=== PATIENT | male | born 1950 | race Caucasian/White ===

== ENCOUNTER 2016-06-21 19:28 | Outpatient (CLI) | payer BC, OTHER | END 2016-06-21 19:29 | disposition home or self-care (01) | DX: G47.33 Obstructive sleep apnea (adult) (pediatric) (principal); G47.61 Periodic limb movement disorder; Z68.33 Body mass index [BMI] 33.0-33.9, adult ==

== ENCOUNTER 2016-07-27 09:05 | Outpatient (CLI) | payer BC, OTHER | END 2016-07-27 09:06 | disposition home or self-care (01) | DX: G47.33 Obstructive sleep apnea (adult) (pediatric) (principal); G47.61 Periodic limb movement disorder ==

== ENCOUNTER 2016-08-05 08:54 | Outpatient (CLI) | payer BC, OTHER | END 2016-08-05 08:55 | disposition home or self-care (01) | DX: R07.9 Chest pain, unspecified (principal) ==

== ENCOUNTER 2016-08-10 14:41 | Outpatient (CLI) | payer BC, OTHER | END 2016-08-10 14:42 | disposition home or self-care (01) | DX: M25.561 Pain in right knee (principal) ==

== ENCOUNTER 2016-08-15 19:29 | Outpatient (CLI) | payer BC, OTHER | END 2016-08-15 19:30 | disposition home or self-care (01) | DX: G47.33 Obstructive sleep apnea (adult) (pediatric) (principal); G47.61 Periodic limb movement disorder; Z68.33 Body mass index [BMI] 33.0-33.9, adult ==

== ENCOUNTER 2016-08-31 09:15 | Outpatient (CLI) | payer BC, OTHER | END 2016-08-31 09:16 | disposition home or self-care (01) | DX: G47.33 Obstructive sleep apnea (adult) (pediatric) (principal) ==

== ENCOUNTER 2016-10-12 09:39 | Outpatient (CLI) | payer BC, OTHER | END 2016-10-12 09:40 | disposition home or self-care (01) | LOC: SC 09:39 | PROVIDERS: ATTEND Nurse Practitioner Family | DX: G47.33 Obstructive sleep apnea (adult) (pediatric) (principal) | CPT/HCPCS: 99212; 99214 ==

== ENCOUNTER 2017-01-13 07:35 | Outpatient (CLI) | payer BC, OTHER ==
[2017-01-13 12:52] LABS: BILIRUBIN,URINE NEGATIVE (NEGATIVE)
[2017-01-13 13:01] LABS: BASOPHILS % (AUTO) 0.3 %; EOSINOPHILS # (AUTO) 0.1 10^3/uL (0.0-0.7); HCT - HEMATOCRIT 42.3 % (42.0-52.0); LYMPHOCYTES # (AUTO) 1.4 10^3/uL (1.5-3.5); LYMPHOCYTES % (AUTO) 40.3 %; MEAN CORPUSCULAR HEMOGLOBIN 29.1 pg (27.0-31.0); MEAN CORPUSCULAR HGB CONC 33.2 g/dL (32.0-36.0); MEAN CORPUSCULAR VOLUME 87.5 fL (80.0-94.0); MEAN PLATELET VOLUME 7.3 fL (7.4-11.4); MONOCYTES # (AUTO) 0.4 10^3/uL (0.0-1.0); MONOCYTES % (AUTO) 11.3 %; NEUTROPHILS # (AUTO) 1.6 10^3/uL (1.5-6.6); NEUTROPHILS % (AUTO) 45.1 %; NUCLEATED RED BLOOD CELLS AUTO 0.1 /100WBC; RED BLOOD COUNT 4.83 10^6/uL (4.70-6.10); RED CELL DISTRIBUTION WIDTH 13.4 % (12.0-15.0); UNCORRECTED WHITE BLOOD COUNT 3.5 x10^3/uL; WHITE BLOOD COUNT 3.5 x10^3/uL (4.8-10.8)
[2017-01-13 13:08] LABS: WBC,URINE 0-3 /HPF (0-3)
[2017-01-13 13:09] LABS: UR CULTURE IF IND NOT INDICATED
[2017-01-13 13:17] LABS: ALBUMIN/GLOBULIN RATIO 1.7 (1.0-2.2); BILIRUBIN,TOTAL 0.7 mg/dL (0.2-1.0); BUN - BLOOD UREA NITROGEN 18 mg/dL (6-20); CALCIUM 9.5 mg/dL (8.5-10.3); CARBON DIOXIDE - CO2 30 mmol/L (21-32); CHLORIDE 102 mmol/L (101-111); CHOL/HDL RATIO 3.2 (<5.0); CHOLESTEROL 130 mg/dL; CREATININE 0.7 mg/dL (0.6-1.2); GFR - MDRD 114 (>89); GLUCOSE 92 mg/dL (70-100); HDL CHOLESTEROL 41 mg/dL; LDL/HDL RATIO 1.8 (<3.6); POTASSIUM 4.1 mmol/L (3.5-5.0); SODIUM 139 mmol/L (135-145); TOTAL PROTEIN 7.1 g/dL (6.7-8.2); TRIGLYCERIDES 76 mg/dL; VLDL CHOLESTEROL 15 mg/dL
== END 2017-01-13 07:36 | disposition home or self-care (01) ==
LOC: LAB.WCP 07:35
PROVIDERS: ATTEND Family Medicine
DX: K21.9 Gastro-esophageal reflux disease without esophagitis (principal); E78.5 Hyperlipidemia, unspecified; R31.9 Hematuria, unspecified; N40.1 Benign prostatic hyperplasia with lower urinary tract symptoms
CPT/HCPCS: 36415; 80053; 80061; 81001; 84153; 85025; 87086

== ENCOUNTER 2017-09-12 09:05 | Outpatient (CLI) | payer BC, OTHER | END 2017-09-12 09:06 | disposition home or self-care (01) | LOC: SC 09:05 | PROVIDERS: ATTEND Internal Medicine Pulmonary Disease | DX: G47.33 Obstructive sleep apnea (adult) (pediatric) (principal) | CPT/HCPCS: 99212; 99213 ==

== ENCOUNTER 2017-12-12 08:00 | Outpatient (CLI) | payer BC, OTHER ==
[2017-12-12 12:50] LABS: BILIRUBIN,URINE NEGATIVE (NEGATIVE); GLUCOSE, URINE (UA) NEGATIVE (NEGATIVE); KETONES,URINE (UA) NEGATIVE (NEGATIVE); LEUKOCYTE ESTERASE, URINE NEGATIVE (NEGATIVE); NITRITE,URINE NEGATIVE (NEGATIVE); OCCULT BLOOD,URINE NEGATIVE (NEGATIVE); PROTEIN,URINE NEGATIVE (NEGATIVE); UROBILINOGEN,URINE 0.2 (NORMAL) E.U./dL (NORMAL)
[2017-12-12 12:52] LABS: CLARITY,URINE CLEAR (CLEAR)
[2017-12-12 13:03] LABS: ALBUMIN/GLOBULIN RATIO 1.2 (1.0-2.2); ALKALINE PHOSPHATASE 35 IU/L (42-121); ALT ALANINE AMINOTRANSFERASE 27 IU/L (10-60); AST ASPARTATE AMINOTRANSFERASE 29 IU/L (10-42); BILIRUBIN,TOTAL 1.1 mg/dL (0.2-1.0); BUN - BLOOD UREA NITROGEN 26 mg/dL (6-20); CALCIUM 9.3 mg/dL (8.5-10.3); CARBON DIOXIDE - CO2 28 mmol/L (21-32); CHLORIDE 102 mmol/L (101-111); CHOL/HDL RATIO 4.8 (<5.0); CHOLESTEROL 203 mg/dL; CREATININE 0.9 mg/dL (0.6-1.2); GFR - MDRD 85 (>89); GLUCOSE 92 mg/dL (70-100); HDL CHOLESTEROL 42 mg/dL; LDL CHOLESTEROL,CALCULATED 145 mg/dL; LDL/HDL RATIO 3.5 (<3.6); SODIUM 137 mmol/L (135-145); TOTAL PROTEIN 7.3 g/dL (6.7-8.2); VLDL CHOLESTEROL 16 mg/dL
[2017-12-12 13:14] LABS: BASOPHILS % (AUTO) 0.9 %; EOSINOPHILS % (AUTO) 3.8 %; LYMPHOCYTES % (AUTO) 36.3 %; MEAN CORPUSCULAR HEMOGLOBIN 29.5 pg (27.0-31.0); MEAN CORPUSCULAR HGB CONC 33.9 g/dL (32.0-36.0); MEAN PLATELET VOLUME 7.3 fL (7.4-11.4); MONOCYTES % (AUTO) 10.5 %; NEUTROPHILS % (AUTO) 48.5 %; PLT - PLATELET COUNT 149 10^3/uL (130-450); RED BLOOD COUNT 5.08 10^6/uL (4.70-6.10); RED CELL DISTRIBUTION WIDTH 13.5 % (12.0-15.0); WHITE BLOOD COUNT 4.4 x10^3/uL (4.8-10.8)
[2017-12-12 13:17] LABS: ABNORMAL LYMPHS % (MANUAL) 0 %; BAND NEUTROPHILS % (MANUAL) 0 %
[2017-12-12 13:38] LABS: BACTERIA,URINE None Seen /HPF (None Seen); RBC,URINE 0-5 /HPF (0-5); SQUAMOUS EPITHELIAL CELL,UR NONE SEEN (<= Few)
[2017-12-12 15:22] LABS: BASOPHILS # (MANUAL) 0.1 10^3/uL (0-0.1); BASOPHILS % (MANUAL) 3 %; EOSINOPHILS # (MANUAL) 0.1 10^3/uL (0-0.7); LYMPHOCYTES # (MANUAL) 1.6 10^3/uL (1.5-3.5); LYMPHOCYTES % (MANUAL) 26 %; MONOCYTES # (MANUAL) 0.6 10^3/uL (0.0-1.0); NEUTROPHILS % (MANUAL) 46 %; PLATELET MORPHOLOGY NORMAL APPEARANCE (NORMAL); RBC MORPHOLOGY (MULTIPLE) NORMAL APPEARANCE (NORMAL)
[2017-12-12 15:23] LABS: DIFFERENTIAL COMMENT MANUAL DIFFERENTIAL; PLATELET ESTIMATE, MANUAL NORMAL (130-450,000) (NORMAL)
== END 2017-12-12 08:01 | disposition home or self-care (01) ==
LOC: LAB.WCP 08:00
PROVIDERS: ATTEND Family Medicine
DX: E66.9 Obesity, unspecified (principal); E78.5 Hyperlipidemia, unspecified; R31.9 Hematuria, unspecified; Z12.5 Encounter for screening for malignant neoplasm of prostate
CPT/HCPCS: 36415; 80053; 80061; 81001; 83721; 84153; 85025

== ENCOUNTER 2018-09-11 09:11 | Outpatient (CLI) | payer MEDICARE, BC, OTHER | END 2018-09-11 09:12 | disposition home or self-care (01) | LOC: SC 09:11 | PROVIDERS: ATTEND Internal Medicine Pulmonary Disease | DX: G47.33 Obstructive sleep apnea (adult) (pediatric) (principal) | CPT/HCPCS: 99213; G0463; 99212 ==

== ENCOUNTER 2018-12-18 | Outpatient (CLI) | payer MEDICARE, BC, OTHER | END 2018-12-18 23:59 | disposition home or self-care (01) | CPT/HCPCS: 36415; 80053; 80061; 85025; G0103 ==

== ENCOUNTER 2019-08-21 16:37 | Outpatient (CLI) | payer MEDICARE, BC, OTHER ==
--- NOTE | 2019-08-21 09:59 | SLEEP CARE CONSULTATION ---
Information from patient questionnaire entered by Sheila Carey. I have reviewed and concur with the information entered by Sheila Carey. This document represents the service I personally performed and the decisions made by me, Burton Saez MD, [facility]. History of Present Illness Previous diagnosis: Moderate, Obstructive Sleep Apnea-Hypopnea Syndrome AHI: 29.1 Reason for follow up: annual Equipment type: CPAP Equipment obtained from: [employer] Prior sleep studies: Yes HPI additional information: To minimize the risk of COVID-19 exposure, the patient has requested and consented to this telephone visit. The patient also agrees to having his insurance billed. HPI: Mr. Corona was diagnosed to have moderate obstructive sleep apnea- hypopnea syndrome and returns today for annual follow up of CPAP therapy. The patient purchased the device from [employer] but is getting supplies through [facility]. He continues to wear the old ResMed Mirage Micro nasal mask (he has to buy the mask online because [employer] does not stock the mask). He continues to use the device nightly and all through the night. The compliance report shows that he uses the device 180 nights out of the past 180 nights, averaging 8.3 hours a night. The > 4 hour compliance rate for the past 30 days is 100%. He complains of dry mouth buyt no particular problem with the device such as soreness on the face, dry nose, epistaxis, nasal congestion or headache. He thinks that the pressure of 12 -16 cmH2O is comfortable. On the CPAP therapy he notices improvement in his sleep quality, and that he wakes up feeling fresher in the morning and more awake/alert during the day. His notices no snore at all. The average residual AHI is 2.2; and average time in large leak per day is 15 (was 4 last year) minutes. CPAP Compliance Data - Data Reviewed with Patient Average duration of nightly device use: 8h 15m Compliance rate %: 98.9 Current pressure setting (cmH2O): 12-16 Humidity settin Heated hose settin Average residual AHI: 1.9 Average large leak: 6m 3s Subjective Initial [place] Sleepiness Scale score: 15 Allergies and Home Medications Drug allergies reviewed: Yes Home medication list reviewed: Yes Review of Systems Review of systems same as previous: Yes Impression and Plan IMPRESSION: 1. Obstructive Sleep Apnea-Hypopnea Syndrome, moderate, with the patient continuing to do well on nasal CPAP therapy. He has excellent compliance and significant clinical benefits. The current pressure appears effective and comfortable. Overall, he is very satisfied with treatment and plans to continue with it long-term. For his dry mouth, I recommend raising the heated humidifier setting from 4 to 5. He may also try a full face mask. PLAN: 1. Continue with nasal CPAP set at 12 -16 cm H2O. 2. Try a full face mask, e.g ResMed AirTouch F-20 full face mask. 3. Increase the heated humidifier setting to max. 4. Return for follow up in a year or earlier if there is any problem. Visit Type: Telehealth Phone Location of Provider: Home Patient agrees and consents to this telehealth visit type: Yes Time Spent with Patient (minutes): 10 Provider Statement: I spent 100% of the Telehealth Phone Call with the patient with greater than 50% spent counseling the patient and coordination of care.
== END 2019-08-21 16:38 | disposition home or self-care (01) ==
LOC: SC 16:37
PROVIDERS: ATTEND Internal Medicine Pulmonary Disease
DX: G47.33 Obstructive sleep apnea (adult) (pediatric) (principal)

== ENCOUNTER 2020-03-06 09:16 | Outpatient (CLI) | payer MEDICARE, BC, OTHER ==
[2020-03-06 09:44] LABS: BASOPHILS # (AUTO) 0.1 10^3/uL (0.0-0.1); BASOPHILS % (AUTO) 1.3 %; EOSINOPHILS # (AUTO) 0.1 10^3/uL (0.0-0.7); LYMPHOCYTES # (AUTO) 1.7 10^3/uL (1.5-3.5); LYMPHOCYTES % (AUTO) 36.4 %; MEAN CORPUSCULAR HEMOGLOBIN 28.6 pg (27.0-31.0); MEAN CORPUSCULAR HGB CONC 32.1 g/dL (32.0-36.0); MEAN CORPUSCULAR VOLUME 89.3 fL (80.0-94.0); MEAN PLATELET VOLUME 8.7 fL (7.4-11.4); MONOCYTES # (AUTO) 0.6 10^3/uL (0.0-1.0); MONOCYTES % (AUTO) 12.4 %; NEUTROPHILS # (AUTO) 2.2 10^3/uL (1.5-6.6); NEUTROPHILS % (AUTO) 46.7 %; PLT - PLATELET COUNT 161 10^3/uL (130-450); RED BLOOD COUNT 5.24 10^6/uL (4.70-6.10); RED CELL DISTRIBUTION WIDTH 13.3 % (12.0-15.0); WHITE BLOOD COUNT 4.6 x10^3/uL (4.8-10.8)
[2020-03-06 10:18] LABS: ALBUMIN 4.2 g/dL (3.2-5.5); ALBUMIN/GLOBULIN RATIO 1.4 (1.0-2.2); ALKALINE PHOSPHATASE 40 IU/L (42-121); ALT ALANINE AMINOTRANSFERASE 31 IU/L (10-60); AST ASPARTATE AMINOTRANSFERASE 28 IU/L (10-42); BILIRUBIN,TOTAL 0.7 mg/dL (0.2-1.0); BUN - BLOOD UREA NITROGEN 23 mg/dL (6-20); CALCIUM 9.3 mg/dL (8.5-10.3); CARBON DIOXIDE - CO2 26 mmol/L (21-32); CHLORIDE 101 mmol/L (101-111); CHOL/HDL RATIO 3.1 (<5.0); CHOLESTEROL 141 mg/dL; GLUCOSE 100 mg/dL (70-100); HDL CHOLESTEROL 46 mg/dL; LDL CHOLESTEROL,CALCULATED 84 mg/dL; LDL/HDL RATIO 1.8 (<3.6); SODIUM 137 mmol/L (135-145); TOTAL PROTEIN 7.2 g/dL (6.7-8.2); URIC ACID 5.5 mg/dL (2.6-7.2); VLDL CHOLESTEROL 11 mg/dL
[2020-03-06 10:20] LABS: CRP - C-REACTIVE PROTEIN < 1.0 mg/dL (0-1.0)
[2020-03-06 11:13] LABS: RHEUMATOID FACTOR NEGATIVE (Negative)
--- NOTE | 2020-03-06 12:46 | XRAY Report ---
PROCEDURE: Elbow 2 View BILAT INDICATIONS: ELBOW PAIN,BILATERAL TECHNIQUE: 2 views of each elbow were acquired. COMPARISON: None. FINDINGS: Bones: No acute fractures or dislocations. No suspicious bony lesions. There are corticated ossifi cations overlying the medial epicondyle of the left elbow. Soft tissues: No elbow joint effusion. No suspicious soft tissue calcifications. IMPRESSION: 1. 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 2. Bilateral elbow without acute radiographic abnormalities. Reviewed by: Aldo Rosas MD on 03/06/2020 12:45 PM PDT Approved by: Aldo Rosas MD on 03/06/2020 12:45 PM PDT Station ID: [id number]
== END 2020-03-06 09:17 | disposition home or self-care (01) ==
LOC: DI 09:16
PROVIDERS: ATTEND Family Medicine
DX: M25.522 Pain in left elbow (principal); M25.521 Pain in right elbow; E78.5 Hyperlipidemia, unspecified; Z12.5 Encounter for screening for malignant neoplasm of prostate; K21.9 Gastro-esophageal reflux disease without esophagitis
CPT/HCPCS: 36415; 73070; 80053; 80061; 84550; 85025; 85651; 86140; 86200; 86430; G0103; 83721; 84153

== ENCOUNTER 2020-08-25 09:07 | Outpatient (CLI) | payer MEDICARE, BC, OTHER ==
--- NOTE | 2020-08-25 09:55 | SLEEP CARE CONSULTATION ---
Information from patient questionnaire entered by Sangita Vogel. I have reviewed and concur with the information entered by Sangita Vogel. This document represents the service I personally performed and the decisions made by me, Burton Saez MD, [facility]. History of Present Illness Service Date and Time: 08/25/2020 0907 Previous diagnosis: Moderate, Obstructive Sleep Apnea-Hypopnea Syndrome AHI: 29.1 (in 2016)(22.6 in 2011) Reason for follow up: annual (last seen 08/2019) Equipment type: CPAP Equipment obtained from: [employer] Mask style: Nasal Prior sleep studies: Yes Year and Where: 2016 and 2011 - [facility]; [facility] Type of Sleep Study: Polysomnography HPI additional information: HPI: Mr. Corona was diagnosed to have moderate obstructive sleep apnea- hypopnea syndrome and returns today for annual follow up of CPAP therapy. The patient purchased the device from [employer] but is getting supplies from [employer]. He now wears a ResMed full face mask. He continues to use the device nightly and all through the night. The compliance report shows that he uses the device 180 nights out of the past 180 nights, averaging 8.9 hours a night. He complains of occasional insomnia but no particular problem with the device such as soreness on the face, dry nose, epistaxis, nasal congestion or headache. He thinks that the pressure of 12 -16 cmH2O is comfortable. On the CPAP therapy he notices improvement in his sleep quality, and that he wakes up feeling fresher in the morning and more awake/alert during the day. [place] Sleepiness Scale score is 7 (was 12). His notices no snore at all. The average residual AHI is 3.0; and average time in large leak per day is 13 minutes. CPAP Compliance Data - Data Reviewed with Patient Average duration of nightly device use: 8 hr 52 min Compliance rate %: 98.9 (180 days) Current pressure setting (cmH2O): 12-16 Humidity settin Heated hose settin Average residual AHI: 3.0 Average large leak: 13 min 30 sec Subjective Initial [place] Sleepiness Scale score: 15 (in 2007) Current [place] Sleepiness Scale score: 7 Allergies and Home Medications Drug allergies reviewed: Yes Home medication list reviewed: Yes Review of Systems Review of systems same as previous: Yes Physical Exam Weight: 210 lb Impression and Plan IMPRESSION: 1. Obstructive Sleep Apnea-Hypopnea Syndrome, moderate, with the patient continuing to do well on nasal CPAP therapy. He has excellent compliance and significant clinical benefits. The current pressure appears effective and comfortable. Overall, he is very satisfied with treatment and plans to continue with it long-term. No adjustment is necessary today. PLAN: 1. Continue with nasal CPAP set at 12 -16 cm H2O. 2. Try a ResMed AirTouch F-20 full face mask 3. Return for follow up in a year or earlier if there is any problem. He should be eligible for a new machine next year. Counseling Topics: Weight control Visit Type: In Office Time Spent with Patient (minutes): 15 Provider Statement: I spent 100% of the Face to Face Visit with the patient with greater than 50% spent counseling the patient and coordination of care.
== END 2020-08-25 09:08 | disposition home or self-care (01) ==
LOC: SC 09:07
PROVIDERS: ATTEND Internal Medicine Pulmonary Disease
DX: G47.33 Obstructive sleep apnea (adult) (pediatric) (principal)
CPT/HCPCS: 99212; G0463

== ENCOUNTER 2020-12-10 09:19 | Emergency (ER) | payer MEDICARE, BC, OTHER ==
[2020-12-10] MEDS ORDERED: MECLIZINE 12.5 MG TABLET PO STA (09:42)
[2020-12-10] MEDS ORDERED: SODIUM CHLORIDE 0.9% 1,000 ML IV STA (09:42)
[2020-12-10 10:16] LABS: BASOPHILS # (AUTO) 0.1 10^3/uL (0.0-0.1); BASOPHILS % (AUTO) 1.1 %; EOSINOPHILS # (AUTO) 0.2 10^3/uL (0.0-0.7); EOSINOPHILS % (AUTO) 3.2 %; HCT - HEMATOCRIT 47.8 % (42.0-52.0); HGB - HEMOGLOBIN 15.6 g/dL (14.0-18.0); LYMPHOCYTES # (AUTO) 1.5 10^3/uL (1.5-3.5); LYMPHOCYTES % (AUTO) 30.9 %; MEAN CORPUSCULAR HEMOGLOBIN 28.6 pg (27.0-31.0); MEAN CORPUSCULAR HGB CONC 32.6 g/dL (32.0-36.0); MEAN CORPUSCULAR VOLUME 87.7 fL (80.0-94.0); MONOCYTES # (AUTO) 0.6 10^3/uL (0.0-1.0); NEUTROPHILS # (AUTO) 2.5 10^3/uL (1.5-6.6); NEUTROPHILS % (AUTO) 52.6 %; PLT - PLATELET COUNT 145 10^3/uL (130-450); RED BLOOD COUNT 5.45 10^6/uL (4.70-6.10); RED CELL DISTRIBUTION WIDTH 13.3 % (12.0-15.0); WHITE BLOOD COUNT 4.8 x10^3/uL (4.8-10.8)
[2020-12-10 10:28] LABS: ALBUMIN 4.6 g/dL (3.2-5.5); ALBUMIN/GLOBULIN RATIO 1.4 (1.0-2.2); CALCIUM 9.6 mg/dL (8.5-10.3); CREATININE 0.9 mg/dL (0.6-1.2); POTASSIUM 4.4 mmol/L (3.5-5.0); TOTAL PROTEIN 7.9 g/dL (6.7-8.2)
--- NOTE | 2020-12-10 11:12 | CT Report ---
PROCEDURE: HEAD WO INDICATIONS: vertigo TECHNIQUE: Noncontrast 4.5 mm thick angled axial sections acquired from the foramen magnum to the vertex. For r adiation dose reduction, the following was used: automated exposure control, adjustment of mA and/or kV according to patient size. COMPARISON: None. FINDINGS: Image quality: Excellent. CSF spaces: Basal cisterns are patent. No extra-axial fluid collections. Ventricles are normal in size and shape. Brain: No midline shift. No intracranial masses or hemorrhage. Ralph-white matter interface is with in normal limits. Skull and face: Calvarium and visualized facial bones are intact, without suspicious lesions. Sinuses: Visualized sinuses and mastoids are clear. IMPRESSION: No acute intracranial abnormality. Reviewed by: Melchor Ott MD on 12/10/2020 11:10 AM PDT Approved by: Melchor Ott MD on 12/10/2020 11:10 AM PDT Station ID: [id number]
[2020-12-10 11:29] VITALS: BP 133/85
--- NOTE | 2020-12-10 11:32 | ED Physician Documentation ---
History of Present Illness - Stated complaint Stated Complaint: DIZZY - Chief complaint Chief Complaint: Neuro - History obtained from History obtained from: Patient - Additonal information Additional information: Patient comes emergency department chief complaint of feeling "dizzy". He states that this is somewhat of a lightheaded feeling but even more so, a sense of movement or spinning. He states that he first felt this way several weeks ago when he had the big streak of heat of hot weather, but that this resolved on its own. He states his current episode started up about 3 days ago and that when he turns over in bed onto his left side he notices it the most. Otherwise, he does not have any specific triggers. The vertigo is severe and seems to come and go. He has occasional nausea but has not vomited. No tenderness. He has not been ill recently. No current medications for the vertigo. Patient states he is fairly healthy otherwise. No focal neurologic deficits. No other comp laints at this time. No recent head injury. Patient was seen at the walk-in clinic prior to this and sent here for further evaluation. Review of Systems Ten Systems: 10 systems reviewed and negative Constitutional: reports: Reviewed and negative Eyes: reports: Reviewed and negative Ears: reports: Reviewed and negative Nose: reports: Reviewed and negative Throat: reports: Reviewed and negative Cardiac: reports: Reviewed and negative Respiratory: reports: Reviewed and negative GI: reports: Reviewed and negative : reports: Reviewed and negative Skin: reports: Reviewed and negative Musculoskeletal: reports: Reviewed and negative Neurologic: reports: Other (Dizziness) Psychiatric: reports: Reviewed and negative Endocrine: reports: Reviewed and negative Immunocompromised: reports: Reviewed and negative PD PAST MEDICAL HISTORY - Present Medications Home Medications: Ambulatory Orders Medication Instructions Recorded Confirmed Meclizine HCl [Motion Sickness] 25 mg PO Q6HR PRN #20 tablet 12/10/20 Simvastatin [Zocor] 20 mg PO DAILY 12/10/20 12/10/20 - Allergies Allergies/Adverse Reactions: Allergies Allergy/AdvReac Type Severity Reaction Status Date / Time No Known Drug Allergies Allergy Verified 12/10/20 09:28 - Social History Does the pt smoke?: No Smoking Status: Never smoker PD ED PE NORMAL - Vitals Vital signs reviewed: Yes - General General: Alert and oriented X 3, No acute distress, Well developed/nourished - HEENT HEENT: Atraumatic, PERRL, EOMI, Moist mucous membranes - Neck Neck: Supple, no meningeal sign - Cardiac Cardiac: RRR, No murmur - Respiratory Respiratory: No respiratory distress, Clear bilaterally - Abdomen Abdomen: Soft, Non tender, Non distended - Back Back: No CVA TTP - Derm Derm: Normal color, Warm and dry, No rash - Extremities Extremities: No deformity, No edema - Neuro Neuro: Alert and oriented X 3, 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, No motor deficit, No sensory deficit, Normal speech - Psych Psych: Normal mood, Normal affect Results - Vitals Vitals: Oxygen O2 Source Room air - Labs Labs: Laboratory Tests 12/10/20 12/10/20 09:50 09:50 WBC 4.8 RBC 5.45 Hgb 15.6 Hct 47.8 MCV 87.7 MCH 28.6 MCHC 32.6 RDW 13.3 Plt Count 145 MPV 9.0 Neut # (Auto) 2.5 Lymph # (Auto) 1.5 Hughes # (Auto) 0.6 Eos # (Auto) 0.2 Baso # (Auto) 0.1 Absolute Nucleated RBC 0.00 Nucleated RBC % 0.0 Sodium 136 Potassium 4.4 Chloride 101 Carbon Dioxide 25 Anion Gap 10.0 BUN 25 H Creatinine 0.9 Estimated GFR (MDRD) 84 L Glucose 99 Calcium 9.6 Total Bilirubin 1.0 AST 28 ALT 28 Alkaline Phosphatase 43 Total Protein 7.9 Albumin 4.6 Globulin 3.3 Albumin/Globulin Ratio 1.4 Lipase 31 PD MEDICAL DECISION MAKING - ED course Complexity details: reviewed results, re-evaluated patient, considered differential, d/w patient ED course: Patient was worked up with labs and head CT which were unremarkable. He was treated with IV fluids and meclizine and found to be feeling much better. He was able to ambulate to the bathroom without difficulty. We discussed symptomatic treatment at home and the need for ENT follow-up if symptoms do not resolve after the next couple weeks. We discussed the usual indications for return. Departure - Departure Disposition: 01 Home, Self Care Clinical Impression: Vertigo Condition: Stable Instructions: ED Vertigo Unspecified Prescriptions: Meclizine HCl [Motion Sickness] 25 mg PO Q6HR PRN #20 tablet PRN Reason: Dizziness Comments: Your labs and CT scan look very good. Most likely, you have vertigo that is stemming from your inner ear. Sometimes this is a problem with the nerve of the inner ear, and sometimes it is a problem with calcium deposits in the fluid- filled canals that detect movements. Either way, the symptoms generally calm down on their own, but the medicine can be helpful for this. Please take the medicine as needed. If you are still having symptoms after a couple of weeks, please follow-up with your primary care physician for further evaluation. You may continue your usual activities as far as you feel comfortable doing so. Discharge Date/Time: 12/10/20 11:55
== END 2020-12-10 11:55 | disposition home or self-care (01) ==
LOC: ED 09:19
DX: R42 Dizziness and giddiness (principal)
CPT/HCPCS: 36415; 70450; 80053; 83690; 85025; 99284; A9270

== ENCOUNTER 2021-03-27 08:00 | Outpatient (CLI) | payer MEDICARE, BC, OTHER ==
[2021-03-27 14:34] LABS: CHOLESTEROL 128 mg/dL; HDL CHOLESTEROL 42 mg/dL; LDL CHOLESTEROL,CALCULATED 76 mg/dL; LDL/HDL RATIO 1.8 (<3.6); TRIGLYCERIDES 50 mg/dL; VLDL CHOLESTEROL 10 mg/dL
== END 2021-03-27 23:59 | disposition home or self-care (01) ==
LOC: LAB.WCP 08:00
PROVIDERS: ATTEND Family Medicine
DX: E78.5 Hyperlipidemia, unspecified (principal)
CPT/HCPCS: 36415; 80061; 83721

== ENCOUNTER 2021-10-26 09:25 | Outpatient (CLI) | payer MEDICARE, BC, OTHER ==
--- NOTE | 2021-10-26 22:09 | SLEEP CARE CONSULTATION ---
Information from patient questionnaire entered by Chad Roa MA. I have reviewed and concur with the information entered by Chad Roa MA. This document represents the service I personally performed and the decisions made by me, Burton Saez MD, [facility]. History of Present Illness Service Date and Time: 10/26/2021 0925 Previous diagnosis: Moderate, Obstructive Sleep Apnea-Hypopnea Syndrome AHI: 29.1 (in 2016)(22.6 in 2011) Reason for follow up: annual (LAST SEEN 08/25/20, GIANLUCA, GREWAL 4-25-17, NEW RX?) Equipment type: CPAP Equipment obtained from: [employer] Mask style: Nasal Prior sleep studies: Yes Year and Where: 2016 and 2011 - [facility]; [facility] Type of Sleep Study: Polysomnography HPI additional information: Mr. Corona was diagnosed to have moderate obstructive sleep apnea-hypopnea syndrome and returns today for annual follow up of CPAP therapy. The patient purchased the device from [employer] but is getting supplies from [facility]. He now wears a ResMed full face mask. He is back using his S9 because his Respironics DreamStation is being recalled. He uses the device nightly and all through the night. The compliance report shows that he uses the device 180 nights out of the past 180 nights, averaging 8.6 hours a night. He complains of occasional insomnia but no particular problem with the device such as soreness on the face, dry nose, epistaxis, nasal congestion or headache. He thinks that the pressure of 14 cmH2O is comfortable (his Resp[employer]ics autoCPAP was set at 12 16 cmH2O). On the CPAP therapy he notices improvement in his sleep quality, and that he wakes up feeling fresher in the morning and more awake/alert during the day. [place] Sleepiness Scale score is 7. His notices no snore at all. The efficacy is not available because his machine is S9 Escape. Sleep Study - Results Type of Sleep Study: Polysomnography Prior sleep studies: Yes Year and Where: 2016 and 2011 - [facility]; [facility] Subjective Initial [place] Sleepiness Scale score: 15 (in 2007) Allergies and Home Medications Drug allergies reviewed: Yes Home medication list reviewed: Yes Allergy and home medication list: Allergies No Known Drug Allergies Allergy (Verified 12/10/20 09:28) Review of Systems Review of systems same as previous: Yes Physical Exam Vital signs obtained and entered by: TOM PATEL Blood Pressure: 133/72 ([id number], REP 18,) Cuff size: wrist Heart Rate: 62 O2 Saturation: 97 Height: 5 ft 8 in Weight: 200 lb Body Mass Index: 30.4 BMI Classification: Obese Impression and Plan IMPRESSION: 1. Obstructive Sleep Apnea-Hypopnea Syndrome, moderate, with the patient continuing to do well on nasal CPAP therapy. He has excellent compliance and significant clinical benefits. The current pressure appears comfortable. Overall, he is very satisfied with treatment and plans to continue with it long-term. No adjustment is necessary today. His insomnia is due to excessive time spent in bed of 9 hours a night. PLAN: 1. Continue with ResMed S9 Escape CPAP set at 14 cm H2O. 2. Wait for a replacement device from [employer]. 3. Maintain a regular wake up time and spend no more than 8 hours in bed at night. Avoid naps. He should delay his bedtime from 9:30 to 10:30 pm and continue to wake up at 6:30 am. 4. Return for follow up in a year or earlier if there is any problem. He should be eligible for a new machine next year. Follow up with Sleep Care in: 1 year Visit Type: In Office Time Spent with Patient (minutes): 20 Provider Statement: I spent 100% of the Face to Face Visit with the patient with greater than 50% spent counseling the patient and coordination of care.
[2021-10-26 22:10] VITALS: BP 133/72
== END 2021-10-26 09:26 | disposition home or self-care (01) ==
LOC: SC 09:25
PROVIDERS: ATTEND Internal Medicine Pulmonary Disease
DX: G47.33 Obstructive sleep apnea (adult) (pediatric) (principal); E66.9 Obesity, unspecified; Z68.30 Body mass index [BMI] 30.0-30.9, adult
CPT/HCPCS: 99213; G0463; 99212

== ENCOUNTER 2022-12-20 10:02 | Outpatient (CLI) | payer MEDICARE, BC, OTHER ==
--- NOTE | 2022-12-20 12:47 | SLEEP CARE CONSULTATION ---
Information from patient questionnaire entered by Bobby Noonan. I have reviewed and concur with the information entered by Bobby Noonan. This document represents the service I personally performed and the decisions made by me, Burton Saez MD, [facility]. History of Present Illness Service Date and Time: 12/20/2022 1002 Previous diagnosis: Moderate, Obstructive Sleep Apnea-Hypopnea Syndrome AHI: 29.1 (in 2016)(22.6 in 2011) Reason for follow up: annual (LAST SEEN 10/2021) Equipment type: CPAP (RESMED SD CARD NEEDED) [facility] Mask style: Nasal Prior sleep studies: Yes Year and Where: 2016 and 2011 - [facility] Type of Sleep Study: Polysomnography HPI additional information: Mr. Corona was diagnosed to have moderate obstructive sleep apnea-hypopnea syndrome and returns today for annual follow up of CPAP therapy. The patient gets his supplies from [facility]. He now wears a ResMed full face mask. He is using a [employer] DreamStation 2 autoCPAP. He uses the device nightly and all through the night. The compliance report shows that he uses the device 179 nights out of the past 182 nights, averaging 8.5 hours a night. He complains of occasional insomnia but no particular problem with the device such as soreness on the face, dry nose, epistaxis, nasal congestion or headache. He thinks that the pressure of 12 - 16 cmH2O is comfortable. On the CPAP therapy he notices improvement in his sleep quality, and that he wakes up feeling fresher in the morning and more awake/alert during the day. [place] Sleepiness Scale score is 7. His notices no snore at all. The residual AHI is 4.8. Average time in large leak per day is 37 seconds. Sleep Study - Results Type of Sleep Study: Polysomnography Prior sleep studies: Yes Year and Where: 2016 and 2011 - [facility]; [facility] Subjective Initial [place] Sleepiness Scale score: 15 (in 2007) Current [place] Sleepiness Scale score: 12 (12/20/22) Allergies and Home Medications Drug allergies reviewed: Yes Home medication list reviewed: Yes Allergy and home medication list: Allergies No Known Drug Allergies Allergy (Verified 12/17/22 10:24) Review of Systems Review of systems same as previous: Yes Physical Exam Vital signs obtained and entered by: BOBBY Hunter MA Blood Pressure: 102/60 (LEFT ARM) Cuff size: regular Heart Rate: 51 O2 Saturation: 98 Height: 5 ft 8 in Weight: 208 lb 3.2 oz Body Mass Index: 31.6 BMI Classification: Obese Impression and Plan IMPRESSION: 1. Obstructive Sleep Apnea-Hypopnea Syndrome, moderate, with the patient continuing to do well on nasal CPAP therapy. He has excellent compliance and significant clinical benefits. The current pressure appears comfortable. Overall, he is very satisfied with treatment and plans to continue with it long-term. No adjustment is necessary today. His insomnia is due to excessive time spent in bed of 9 hours a night. PLAN: 1. Continue with autoCPAP set at 12 - 16 cm H2O. 2. Try to lose weight. 3. Maintain a regular wake up time and spend no more than 8 hours in bed at night. Avoid naps. He should delay his bedtime from 10 to 11 pm and continue to wake up at 7 am. 4. Return for follow up in a year or earlier if there is any problem. He is eligible for a new machine through Medicare but would like to wait a year because he just go the OptoNovaStation 2. Counseling Topics: Weight control Follow up with Sleep Care in: 1 year Visit Type: In Office Time Spent with Patient (minutes): 15 Provider Statement: I spent 100% of the Face to Face Visit with the patient with greater than 50% spent counseling the patient and coordination of care.
[2022-12-20 12:50] VITALS: BP 102/60
== END 2022-12-20 10:03 | disposition home or self-care (01) ==
LOC: SC 10:02
PROVIDERS: ATTEND Internal Medicine Pulmonary Disease
DX: G47.33 Obstructive sleep apnea (adult) (pediatric) (principal); E66.9 Obesity, unspecified; Z68.31 Body mass index [BMI] 31.0-31.9, adult
CPT/HCPCS: 99212; G0463

== ENCOUNTER 2023-12-26 09:04 | Outpatient (CLI) | payer MEDICARE, BC, OTHER ==
--- NOTE | 2023-12-26 09:48 | SLEEP CARE CONSULTATION ---
Information from patient questionnaire entered by Bobby Noonan. I have reviewed and concur with the information entered by Bobby Noonan. This document represents the service I personally performed and the decisions made by me, Burton Saez MD, [facility]. History of Present Illness Service Date and Time: 12/26/2023 0904 Previous diagnosis: Moderate, Obstructive Sleep Apnea-Hypopnea Syndrome AHI: 29.1 (in 2016)(22.6 in 2011) Reason for follow up: annual (LAST SEEN 12/2022) Equipment type: CPAP (RESMED SD CARD NEEDED) Equipment obtained from: [employer] Mask style: Nasal Prior sleep studies: Yes Year and Where: 2016 and 2011 - [facility]; [facility] Type of Sleep Study: Polysomnography HPI additional information: Mr. Corona was diagnosed to have moderate obstructive sleep apnea-hypopnea syndrome and returns today for annual follow up of CPAP therapy. The patient gets his supplies from [facility]. He now wears a ResMed full face mask. He is using his old ResMed S9 Escape. He uses the device nightly and all through the night. The compliance report shows that he has used the device 179 nights out of the past 182 nights, averaging 8.5 hours a night. He complains of occasional insomnia but no particular problem with the device such as soreness on the face, dry nose, epistaxis, nasal congestion or headache. He thinks that the pressure of 14 cmH2O is comfortable. On the CPAP therapy he notices improvement in his sleep quality, and that he wakes up feeling fresher in the morning and more awake/alert during the day. [place] Sleepiness Scale score is 15. His notices snores still. The S9 Escape does not report efficacy data. Sleep Study - Results Type of Sleep Study: Polysomnography Prior sleep studies: Yes Year and Where: 2016 and 2011 - [facility]; [facility] CPAP Compliance Data - Data Reviewed with Patient Average duration of nightly device use: 8HRS 31MINS Compliance rate %: 99 (06/29/23-12/25/23) Current pressure setting (cmH2O): 14-FULLTIME Subjective Patient concerns: reports: dry mouth, nose, throat Initial [place] Sleepiness Scale score: 15 (in 2007) Current [place] Sleepiness Scale score: 15 (12/26/23) Allergies and Home Medications Drug allergies reviewed: Yes Home medication list reviewed: Yes Allergy and home medication list: Allergies No Known Drug Allergies Allergy (Verified 12/26/23 09:06) Review of Systems Review of systems same as previous: Yes Physical Exam Vital signs obtained and entered by: BOBBY Hunter MA Blood Pressure: 145/89 (RIGHT ARM) Cuff size: regular Heart Rate: 61 O2 Saturation: 99 Height: 5 ft 8 in Weight: 208 lb Body Mass Index: 31.6 BMI Classification: Obese Impression and Plan IMPRESSION: 1. Obstructive Sleep Apnea-Hypopnea Syndrome, moderate, with the patient continuing to do well on nasal CPAP therapy. He has excellent co mpliance and significant clinical benefits. The current pressure appears comfortable. Overall, he is very satisfied with treatment and plans to continue with it long-term. No adjustment is necessary today. Because the CPAP is now older than the useful life of 5 years, I will order the patient a new one and make it an autoCPAP set between 12 and 16 cmH2O. PLAN: 1. Continue with autoCPAP set at 12 - 16 cm H2O. 2. Try to lose weight. 3. Return for follow up after two months of using the CPAP. Counseling Topics: Weight control Prescriptions: Auto CPAP Follow up with Sleep Care in: 1-2 months Visit Type: In Office Time Spent with Patient (minutes): 15 Provider Statement: I spent 100% of the Face to Face Visit with the patient with greater than 50% spent counseling the patient and coordination of care.
[2023-12-26 09:50] VITALS: BP 145/89; O2SAT 99
== END 2023-12-26 09:05 | disposition home or self-care (01) ==
LOC: SC 09:04
PROVIDERS: ATTEND Internal Medicine Pulmonary Disease
DX: G47.33 Obstructive sleep apnea (adult) (pediatric) (principal); E66.9 Obesity, unspecified; Z68.31 Body mass index [BMI] 31.0-31.9, adult
CPT/HCPCS: 99212; G0463